=== PATIENT | female | born 1995 | race Caucasian/White ===

== ENCOUNTER 2018-12-15 14:45 | Emergency (ER) | payer OTHER, MEDICAID ==
[~2018-12-15] VITALS: Ht 162.6 cm; Wt 56.0 kg
[2018-12-15 20:03] VITALS: BP 148/96
== END 2018-12-15 20:05 | disposition home or self-care (01) ==
LOC: ER 14:47
DX: S06.0X0A Concussion without loss of consciousness, initial encounter (principal); Z87.820 Personal history of traumatic brain injury; V49.88XA Car occupant (driver) (passenger) injured in other specified transport accidents, initial encounter; Y93.89 Activity, other specified; Y92.413 State road as the place of occurrence of the external cause; Y99.9 Unspecified external cause status
CPT/HCPCS: 70450; 99284

== ENCOUNTER 2023-01-30 21:11 | Emergency (ER) | payer MEDICAID ==
[~2023-01-30] VITALS: Ht 162.6 cm; Wt 65.6 kg
[2023-01-30 21:31] VITALS: TEMP 98.3
[2023-01-30 22:25] VITALS: BP 135/99; PULSE 93; RESP 16; O2SAT 98
== END 2023-01-31 01:10 | disposition left against medical advice (07) ==
LOC: ER 21:12
DX: K08.89 Other specified disorders of teeth and supporting structures (principal); Z53.21 Procedure and treatment not carried out due to patient leaving prior to being seen by health care provider
CPT/HCPCS: 99281